=== PATIENT | female | born 1955 | race Caucasian/White ===

== ENCOUNTER 2019-04-20 14:58 | Outpatient (CLI) | payer BC, SELFPAY | END 2019-04-20 14:59 | disposition home or self-care (01) | LOC: ANHSURGERY 15:04 | PROVIDERS: PCP Internal Medicine; Visit Provider Obstetrics & Gynecology | DX: N83.209 Unspecified ovarian cyst, unspecified side (principal) | CPT/HCPCS: 36415; 86850; 86900; 86901 ==

== ENCOUNTER 2019-04-29 01:05 | Day surgery (SDC) | payer BC, SELFPAY ==
[2019-04-15 14:16] VITALS: BMI 16.6
[2019-04-29] VITALS (12 sets, daily range): BP systolic 102–153; BP diastolic 58–80; PULSE 59–76; RESP 12–18; TEMP 36.2–36.8; O2SAT 92–100; BMI 17.2
[2019-04-29] MEDS: LACTATED RINGERS 1,000 ML 30 ML IV CONT ×2 (11:00→13:25)
--- NOTE | 2019-04-29 11:34 | P.PNAN_ITS ---
Anes - Initial Pre Proc Eval Procedure: Operation Date: 04/29/19 12:00 Proposed Procedures p Robotic Assisted Laparoscopic Right Ovarian Cystectomy, Possible Right Oophorectomy - Karl Gomez MD Date/Time: 04/29/19 11:34 Surgeon: Karl Gomez MD Pre Op Diagnosis: Right Ovarian Cyst Patient Data Age: 63 Gender: F Height: 5 ft 3 in Weight: 44 kg Last Vital Signs Temp 98.3 F 04/29/19 10:38 Pulse 76 04/29/19 10:38 Resp 14 04/29/19 10:38 BP 153/80 H 04/29/19 10:38 Pulse Ox 100 04/29/19 10:38 Allergies Allergy/AdvReac Type Severity Reaction Status Date / Time cephalexin Allergy Intermediate increased Verified 04/29/19 10:30 heart rate codeine Allergy Intermediate Vomiting Verified 04/29/19 10:30 Penicillins Allergy Intermediate yeast Verified 04/29/19 10:30 infections tetracycline Allergy Intermediate increased Verified 04/29/19 10:30 heart rate Home Medications Medication Instructions Recorded Confirmed Type cyclosporine [Restasis] 1 drp OPHTHALMIC (EYE) BID 04/15/19 04/29/19 History Patient hx anesthesia problems: none Family hx anesthesia problems: none [facility] Past Medical History Medical History (Updated 04/29/19 @ 11:28 by Mehdi Bear MD) Arthritis Social History Social History Smoking status: Never smoker Alcohol intake: never Anes - Eval Final PreProcedure Day of Procedure 04/29/19 11:34 Patient weight: normal Heart: regular rate and rhythm Lungs: clear to auscultation Airway: Mallampati scale class III (due to arthritis has a problem with extension) Neurological: alert and oriented Last oral intake: >/= 8 hours ASA classification: II Emergent: no Anesthetic plan: proceed Anesthesia type and monitoring: general ETT and standard monitoring Informed Consent: The patient's anesthetic plan and its attendant risks and benefits were discussed with the patient/family/POA. Questions were solicited and answers provided to the satisfaction of the patient/family/POA.
--- NOTE | 2019-04-29 11:49 | PM.IMHP ---
H&P: HPI History of Present Illness Chief complaint: Right Ovarian Cyst Narrative: Maren Starkey is a 63 year old female admitted with right adnexal mass which has not changed in size/characteristics over past 3-4 months. 5cm with internal echoes, all tumor markers negative. Denies any sig bowel/bladder change and/or bleeding or pain. Has seen Dr Salinas for bladder issues, at this point no surgical intervention planned. Review of Systems Review of Systems: All systems reviewed & are unremarkable except as noted in HPI and below Cardiovascular: Cardiovascular: Reports no additional cardiovascular complaints Respiratory: Respiratory: Reports no additional respiratory complaints Gastrointestinal: Gastrointestinal: Reports no additional gastrointestinal complaints Genitourinary: Genitourinary: Reports no additional female genitourinary complaints [facility] Past Medical History Medical History (Updated 04/29/19 @ 11:54 by Karl Gomez MD) Arthritis History of hysteroscopy Pulmonary embolism Surgical History Surgical History (Updated 04/29/19 @ 11:54 by Karl Gomez MD) H/O tubal ligation Social History Social History Smoking status: Never smoker Alcohol intake: never Meds Home Medications and Allergies Home Medications Medication Instructions Recorded Confirmed Type cyclosporine [Restasis] 1 drp OPHTHALMIC (EYE) BID 04/15/19 04/29/19 History Allergies Allergy/AdvReac Type Severity Reaction Status Date / Time cephalexin Allergy Intermediate increased Verified 04/29/19 10:30 heart rate codeine Allergy Intermediate Vomiting Verified 04/29/19 10:30 Penicillins Allergy Intermediate yeast Verified 04/29/19 10:30 infections tetracycline Allergy Intermediate increased Verified 04/29/19 10:30 heart rate Vital Signs Vital Signs - 24 hr 04/29/19 10:38 Temperature 36.8 C Pulse Rate 76 Respiratory Rate 14 Blood Pressure 153/80 H Pulse Oximetry 100 Exam Chest: Chest palpation & inspection: normal inspection of the chest Resp: Effort & Inspection: normal respiratory effort and able to speak in complete sentences Auscultation: clear to auscultation bilaterally Cardio: Rate: regular rate Rhythm: regular rhythm GI: Inspection: normal to inspection Rectal Exam: deferred : External Female Exam: normal external appearance Speculum Exam - Vagina: normal appearance of the vagina Speculum Exam - Cervix: normal appearance of the cervix Bimanual exam- vagina & uterus: uterine size normal Bimanual Exam- Adnexa, other: Adnexal mass present on the right Assessment and Plan Additional Plan Right adnexal mass. Will proceed with laparoscopic evaluation and removal. Have discussed with the patient possibility of cystectomy but realistically most likely will proceed with oophorectomy. Any further plan will be based on findings at the time of the procedure.
--- NOTE | 2019-04-29 11:58 | WPDHPUPDATE1 ---
History and Physical Update Update Date/Time: 04/29/19 11:58 History and Physical has been reviewed, including an updated exam of the patient. There are NO changes in the patient's condition. Risks, benefits, and alternatives have been discussed and questions answered. Patient agrees to proceed with procedure.
--- NOTE | 2019-04-29 11:59 | P.HP_ITS ---
History of Present Illness History of Present Illness Consent: Risks, benefits, and alternatives have been discussed and questions answered. Patient agrees to proceed with procedure. Chief complaint: Right Ovarian Cyst Narrative: Maren Starkey is a 63 year old female [facility] Past Medical History Medical History (Updated 04/29/19 @ 11:54 by Karl Gomez MD) Arthritis History of hysteroscopy Pulmonary embolism Surgical History Surgical History (Updated 04/29/19 @ 11:54 by Karl Gomez MD) H/O tubal ligation Social History Social History Smoking status: Never smoker Alcohol intake: never Meds Home Medications and Allergies Home Medications Medication Instructions Recorded Confirmed Type cyclosporine [Restasis] 1 drp OPHTHALMIC (EYE) BID 04/15/19 04/29/19 History Allergies Allergy/AdvReac Type Severity Reaction Status Date / Time cephalexin Allergy Intermediate increased Verified 04/29/19 10:30 heart rate codeine Allergy Intermediate Vomiting Verified 04/29/19 10:30 Penicillins Allergy Intermediate yeast Verified 04/29/19 10:30 infections tetracycline Allergy Intermediate increased Verified 04/29/19 10:30 heart rate Vital Signs Vital Signs - 24 hr 04/29/19 10:38 Temperature 36.8 C Pulse Rate 76 Respiratory Rate 14 Blood Pressure 153/80 H Pulse Oximetry 100
--- NOTE | 2019-04-29 13:14 | P.OP_ITS ---
Procedure Note - Detailed Date of procedure: 04/29/19 Pre-op diagnosis: Right Ovarian Cyst Post-op diagnosis: same Procedure performed: Robotic assisted right salpingo-oophorectomy Description of procedure: Patient was prepped and draped in usual manner for this procedure. Abdominal trocar sites were marked and placed under direct visualization. Patient was placed in steep Trendelenburg and the trocars were attached to the DA Chava system. Instruments were placed under direct visualization. Surgeon moved to the console and the findings were noted as above. The infundibulopelvic ligament was cauterized and cut the utero-ovarian ligament was caught cauterized and cut. Further tissue was cauterized and cut to free the ovary from the pelvic sidewall. Specimen was thus placed in a Endo- Catch bag. Specimen was removed without difficulty. Gas was allowed to escape and trocars were removed. Subcuticular incisions were approximated using Osbaldo Monocryl. Patient was then sent to recovery in stable condition. Anesthesia: GETA Surgeon: Karl Gomez MD Estimated blood loss (mL): 0 Drains: No Packing: No Pathology: yes Complications: No immediate complications Condition: stable Disposition: PACU Findings: Uterus and left ovary and tube without abnormality. Right ovary with 4-5 cm clear fluid-filled cyst.
[2019-04-29] MEDS: KETOROLAC 30 MG/ML VIAL (*BKC) 15 MG IV PUSH (13:15)
[2019-04-29] MEDS: HYDROMORPHONE HCL 1 MG/ML INJ 0.5 MG IV PUSH ×2 (14:41→14:48)
--- NOTE | 2019-04-29 15:31 | SUR.PHASEII ---
1530- pt states she is very groggy. not sure if she wants pain pill. instructed to inform nurse if sh changes her mind.
== END 2019-04-29 16:42 | disposition home or self-care (01) ==
PROVIDERS: PCP Internal Medicine; Visit Provider Obstetrics & Gynecology
PROC: 8E0W4CZ Robotic Assisted Procedure of Trunk Region, Percutaneous Endoscopic Approach (ICD-10-PCS; CPT 49320; principal; 2019-04-29 12:00)
DX: N83.8 Other noninflammatory disorders of ovary, fallopian tube and broad ligament (principal)
CPT/HCPCS: 58661; 88305; A9270; J0131; J1170; J1885; J2250; J2405; J2704; J3010; J7030; J7120

== ENCOUNTER → 2019-05-19 12:25 | Outpatient (CLI) | payer BC, SELFPAY ==
--- NOTE | ~2019-05-19 | MR_ITS ---
EXAMINATION: MR cervical spine wo con DATE: 05/19/2019 13:13 INDICATION: Cervical radicular pain. TECHNIQUE: Magnetic resonance imaging (MRI) of the cervical spine was performed without intravenous c ontrast. Sequences included sagittal T2-weighted FSE, sagittal STIR FSE, sagittal T1-weighted FSE, ax ial MERGE, and axial T2-weighted FSE. COMPARISON: Cervical spine MRI 06/19/2005, radiographs 11/05/2017 FINDINGS: There is 4 degrees dextrocurvature of cervical spine. There is 2 mm retrolisthesis of C4 on C5, C5 on C6, and C6 on C7. There is severely decreased disc height at C4-C5, C5-C6, and C6-C7 with mild chronic height loss of the C4-C6 vertebral bodies. The spinal cord signal intensity is normal. T he following disc levels are specifically discussed: C2-C3: The disc does not extend beyond the endplate margin. There is mild left uncovertebral joint os teoarthritis. There is severe bilateral facet joint osteoarthritis. There is mild left neural foramin al stenosis. There is no central canal stenosis. C3-C4: The disc does not extend beyond the endplate margin. There is no uncovertebral joint osteoarth ritis. There is mild bilateral facet joint osteoarthritis. There is no neural foraminal stenosis. The re is no central canal stenosis. C4-C5: The disc is bulging. There is severe bilateral uncovertebral joint osteoarthritis. There is mi ld right and moderate left facet joint osteoarthritis. There is mild bilateral neural foraminal steno sis. There is mild central canal stenosis with ventral indentation of the spinal cord. C5-C6: The disc is bulging. There is severe bilateral uncovertebral joint osteoarthritis. There is mi ld bilateral facet joint osteoarthritis. There is mild bilateral neural foraminal stenosis. There is mild central canal stenosis. C6-C7: The disc is bulging. There is severe bilateral uncovertebral joint osteoarthritis. There is mi ld right and moderate left facet joint osteoarthritis. There is mild right and moderate left neural f oraminal stenosis. There is mild central canal stenosis. C7-T1: The disc does not extend beyond the endplate margin. There is no uncovertebral joint osteoarth ritis. There is mild right and moderate left facet joint osteoarthritis. There is no neural foraminal stenosis. There is no central canal stenosis. IMPRESSION: 1. Severe cervical spondylosis, worsened from 06/19/2005. Reviewed, dictated and finalized at location A.
== END ==
PROVIDERS: Visit Provider Pain Medicine Pain Medicine
DX: M47.22 Other spondylosis with radiculopathy, cervical region (principal)
CPT/HCPCS: 72141

== ENCOUNTER 2019-08-12 14:59 | Outpatient (CLI) | payer BC, SELFPAY ==
--- NOTE | ~2019-08-12 | DEXA_ITS ---
Bone Density Report Name: Maren Starkey Age: 63 Sex: Female Ethnicity: White Date of : 1955 Indication: postmenopausal osteoporosis; monitoring treatment; prior fracture; hysterectomy; Referring Provider: Sherita, Milady Calderon Study: Bone densitometry was performed. Exam Date: August 12, 2019 Accession number: [id number] Bone Density: Region BMD T-score Z-score Classification AP Spine (L1-L4) 0.843 -1.9 -0.2 Osteopenia Femoral Neck (Left) 0.514 -3.0 -1.6 Osteoporosis Total Hip (Left) 0.605 -2.8 -1.6 Osteoporosis Total Hip Bilateral Avg 0.605 -2.8 -1.7 Osteoporosis Femoral Neck (Right) 0.539 -2.8 -1.4 Osteoporosis Total Hip (Right) 0.604 -2.8 -1.7 Osteoporosis World Health Organization criteria for BMD impression classify patients as: Normal (T-score at or above -1.0), Osteopenia (T-score between -1.0 and -2.5), or Osteoporosis (T-score at or below -2.5). 10-year Fracture Risk: FRAX not reported because: Some T-score for Spine Total or Hip Total or Femoral Neck at or below -2.5 Treated for osteoporosis Previous Exams: Region Exam Age BMD T-score BMD Change BMD Change Date g/cm2 vs Baseline vs Previous AP Spine(L1-L4) 08/12/2019 63 0.843 -1.9 -0.107(-11.3%) -0.107(-11.3%) 04/06/2008 52 0.950 -0.9 Total Hip(Left) 08/12/2019 63 0.605 -2.8 -0.029(-4.6%)# -0.029(-4.6%)# 04/06/2008 52 0.635 -2.5 Total Hip(Right) 08/12/2019 63 0.604 -2.8 -0.045(-6.9%)# -0.045(-6.9%)# 04/06/2008 52 0.650 -2.4 *Denotes significance at 95% confidence level, LSC for AP Spine = 0.022 g/cm2, LSC for Total Hip = 0.027 g/cm2 Clinical Information Provided by Patient: Has had a low trauma fracture Is being treated for osteoporosis Has used the following medications: Fosamax (i.e. alendronate), Vitamin D, Calcium Has the following medical conditions: Hysterectomy Patient maximum height was 63 Menopause Age: 51 Onset of menses at age 14 Number of children 1 Impression: The patient has established osteoporosis, based on the Left Femoral Neck T-score and the existence of a prior fracture. The patient has risk factors, including: previous fracture. No significant bone loss was observed. Discussion: PATIENT UNDER TREATMENT WITH NO SIGNIFICANT BMD LOSS SINCE LAST EXAM. In an untreated patient, BMD typically declines with age. A lack of decline or gain is usually a sign that treatment is efficacious and fracture risk is reduced. It is important to ask patients whethe
--- NOTE | ~2019-08-12 | MM_ITS ---
EXAMINATION: MM screening [facility] BI w [facility] HISTORY: Screening mammogram TECHNIQUE: Craniocaudal and mediolateral oblique 3-D tomosynthesis images were obtained and synthetic 2-D images were generated. CAD analysis was submitted and interpreted. COMPARISON: 04/05/2010 bilateral digital screening mammogram BREAST PARENCHYMAL COMPOSITION: The breasts are extremely dense, which lowers the sensitivity of mamm ography. FINDINGS: There is no evidence of suspicious mass, calcification, or architectural distortion to sugg est malignancy in either breast. There has been no suspicious interval change. IMPRESSION: 1. No mammographic evidence of malignancy. 2. Recommend routine screening mammography in one year. BI-RADS Category 1: Negative Reviewed, dictated and finalized at location A.
== END 2019-08-12 15:00 | disposition home or self-care (01) ==
PROVIDERS: PCP Internal Medicine; Visit Provider Obstetrics & Gynecology
DX: M81.0 Age-related osteoporosis without current pathological fracture (principal); Z12.31 Encounter for screening mammogram for malignant neoplasm of breast; Z13.820 Encounter for screening for osteoporosis; M85.88 Other specified disorders of bone density and structure, other site
CPT/HCPCS: 77063; 77067; 77080

== ENCOUNTER 2019-10-27 07:15 | Outpatient (CLI) | payer BC, SELFPAY ==
[2019-10-27 23:24] LABS: SARS-CoV-2 RNA PCR Negative
== END 2019-10-27 07:16 | disposition home or self-care (01) ==
LOC: ANHCOVIDDT 07:15
PROVIDERS: Radiology Diagnostic Radiology; PCP Internal Medicine
DX: Z01.812 Encounter for preprocedural laboratory examination (principal); Z20.828 Contact with and (suspected) exposure to other viral communicable diseases
CPT/HCPCS: 87635; C9803; U0003

== ENCOUNTER 2019-10-30 09:38 | Outpatient (CLI) | payer BC, SELFPAY ==
[2019-10-26 09:23] VITALS: BMI 16.5
[2019-10-30] VITALS (9 sets, daily range): BP systolic 126–148; BP diastolic 71–90; PULSE 58–74; RESP 12–16; O2SAT 98–99
--- NOTE | ~2019-10-30 | XR_ITS ---
EXAMINATION: 1. XR myelogram spine lumbosacral 2. CT lumbar spine w con 3. CT cervical spine w con 4. XR myelogram spine cervical DATE: 10/30/2019 11:43 INDICATION: Cervical spondylosis. Lumbar spondylosis. TECHNIQUE: The procedure including the risks, benefits, and alternatives was discussed with the patie nt. Risks discussed included spinal headache, bleeding, and infection. The patient understood the ris ks and agreed to proceed. A timeout was performed to verify the patient's name, date of , and procedure to be performed. The skin overlying the L4-L5 level was prepped and draped in usual steri le fashion. Subcutaneous 1% lidocaine was used for local anesthesia. A 22 gauge spinal needle was a dvanced under fluoroscopic guidance. 10 mL Omnipaque 300 was injection into the thecal sac. The needl e was removed and the entry site was cleaned and dressed. There were no immediate complications. Cer vical and lumbar myelograms were performed. Fluoroscopy exposure time was 0.4 minutes. The total numb er of images was 11 for the lumbar myelogram and 5 for the cervical myelogram. CT of the cervical spi ne and lumbar spine was performed without intravenous contrast. Automated exposure control and iterat mary anne reconstruction technique were employed. The dose-length product was 150.64 mGy-cm for the lumbar spine and 98.23 mGy-cm for the cervical spine. COMPARISON: cervical spine MRI 05/19/19, lumbar spine MRI 09/19/17 FINDINGS: CERVICAL MYELOGRAM: Real-time fluoroscopy demonstrates the needle at the L4-L5 level. There is indent ation of the thecal sac at multiple levels in the cervical spine which will be further described on t he postmyelogram CT. POST-MYELOGRAM CERVICAL SPINE CT: There is kyphosis of cervical spine. There is 16 degrees dextroscol iosis of cervicothoracic spine. There is 2 mm anterolisthesis of C3 on C4. Vertebral body heights are normal. There is severely decreased disc height from C4-C5 through C6-C7. There is mild scarring at the lung apices. The following disc levels are specifically discussed: C2-C3: The disc does not extend beyond the endplate margins. There is mild left uncovertebral joint o steoarthritis. There is severe bilateral facet joint osteoarthritis. There is mild left neural forami nal stenosis. There is no central canal stenosis. C3-C4: The disc does not extend beyond the endplate margins. There is no uncovertebral joint osteoart hritis. There is mild bilateral facet joint osteoarthritis. There is no neural foraminal stenosis. Th ere is no central canal stenosis. C4-C5: The disc is bulging. There is severe bilateral uncovertebral joint osteoarthritis. There is mi ld right and moderate left facet joint osteoarthritis. There is mild bilateral neural foraminal steno sis. There is mild central canal stenosis with ventral indentation of the spinal cord. C5-C6: The disc is bulging. There is severe bilateral uncovertebral joint osteoarthritis. There is mi ld bilateral facet joint osteoarthritis. There is mild bilateral neural foraminal stenosis. There is mild central canal stenosis. C6-C7: The disc is bulging. There is severe bilateral uncovertebral joint osteoarthritis. There is mi ld right and moderate left facet joint osteoarthritis. There is mild right and moderate left neural f oraminal stenosis. There is mild central canal stenosis. C7-T1: The disc does not extend beyond the endplate margin. There is no uncovertebral joint osteoarth ritis. There is mild right and moderate left facet joint osteoarthritis. There is no neural foraminal stenosis. There is no central canal stenosis. LUMBAR MYELOGRAM: There is indentation of the thecal sac at multiple levels in the lumbar spine which will be further described on the post myelogram CT. POST-MYELOGRAM LUMBAR SPINE CT: There are multiple stones in each kidney measuring up to 4 mm on the l
[2019-10-30 10:19] LABS: Mean Platelet Volume 8.8 fl (7.4-10.4); Platelet Count Result 195 k/mm3 (150-375)
[2019-10-30 10:28] LABS: INR 0.9; Prothrombin Time 11.6 Seconds (11.1-14.7)
== END 2019-10-30 14:15 | disposition home or self-care (01) ==
PROVIDERS: Radiology Diagnostic Radiology; PCP Internal Medicine
DX: M48.02 Spinal stenosis, cervical region (principal); M47.812 Spondylosis without myelopathy or radiculopathy, cervical region; M47.896 Other spondylosis, lumbar region; M41.9 Scoliosis, unspecified
CPT/HCPCS: 36415; 62302; 62304; 62305; 72126; 72132; 85049; 85610

== ENCOUNTER 2019-11-02 13:01 | Outpatient (CLI) | payer BC, SELFPAY ==
[2019-11-02] VITALS (7 sets, daily range): BP systolic 131–153; BP diastolic 71–94; PULSE 75–95; RESP 16–19; TEMP 36.9; O2SAT 97–99
--- NOTE | ~2019-11-02 | XR_ITS ---
EXAMINATION: XR injection blood patch w img EXAM DATE: 11/02/2019 14:27 INDICATION: Spinal headache. Myelogram on 10/30/2019. TECHNIQUE: Procedure performed and completed on 11/02/2019 14:27. Informed consent was obtained from the patient for doing this procedure. I discussed benefits and risks including bleeding, infection, backache and headache. Alternatives also discussed. The DAP for this procedure was 2.4 Gycm2. Prior imaging was reviewed. A timeout procedure was performed. IV was placed under sterile conditions by access nurse Tiffanie. The back was prepped in standard sterile fashion with Betadine. L4-5 entry si te was chosen under fluoroscopic guidance and infiltrated with 1% lidocaine. Using the noncutting epi dural needle and loss of resistance technique, needle was advanced to the epidural space. At no time did CSF freely flow out of the needle. Tiffanie then withdrew 15 cc of blood out of the IV and handed this to me. I injected 10 mL of this into the epidural space. Patient tolerated the procedure well and was sent to postoperative for 2 hours ob servation prior to discharge. IMPRESSION: Status post fluoroscopic epidural blood patch. Reviewed, dictated and finalized at location A.
== END 2019-11-02 16:30 | disposition home or self-care (01) ==
PROVIDERS: Radiology Diagnostic Radiology; PCP Internal Medicine
DX: T81.89XA Other complications of procedures, not elsewhere classified, initial encounter (principal); R51 Headache
CPT/HCPCS: 62273; 77003

== ENCOUNTER 2020-02-09 02:07 | Outpatient (CLI) | payer BC, SELFPAY ==
[2020-02-09 19:16] LABS: SARS-CoV-2 RNA PCR Negative
== END 2020-02-09 02:08 | disposition home or self-care (01) ==
LOC: ANHCOVIDDT 02:07
PROVIDERS: PCP Internal Medicine; Visit Provider Internal Medicine Gastroenterology
DX: Z01.812 Encounter for preprocedural laboratory examination (principal); Z20.828 Contact with and (suspected) exposure to other viral communicable diseases
CPT/HCPCS: 87635; C9803; U0003

== ENCOUNTER 2020-02-12 01:18 | Day surgery (SDC) | payer BC, SELFPAY ==
[2020-02-05 09:02] VITALS: BMI 16.1
[2020-02-12 07:10] VITALS: BP 138/85; PULSE 92; RESP 20; TEMP 36.5; O2SAT 100; BMI 16.7
[2020-02-12] MEDS: LACTATED RINGERS 1,000 ML 150 ML IV CONT (07:26)
--- NOTE | 2020-02-12 07:42 | P.PNAN_ITS ---
Anes - Initial Pre Proc Eval Procedure: Operation Date: 02/12/20 08:30 Proposed Procedures p Esophagogastroduodenoscopy - Dmitry Lucero MD Date/Time: 02/12/20 07:42 Surgeon: Dmitry Lucero MD Pre Op Diagnosis: epigastric pain Patient Data Age: 64 Gender: F Height: 5 ft 3 in Weight: 42.7 kg Last Vital Signs Temp 97.7 F 02/12/20 07:10 Pulse 92 02/12/20 07:10 Resp 20 02/12/20 07:10 BP 138/85 02/12/20 07:10 Pulse Ox 100 02/12/20 07:10 Allergies Allergy/AdvReac Type Severity Reaction Status Date / Time cephalexin Allergy Intermediate increased Verified 02/12/20 07:19 heart rate codeine Allergy Intermediate Vomiting Verified 02/12/20 07:19 Penicillins Allergy Intermediate yeast Verified 02/12/20 07:19 infections tetracycline Allergy Intermediate increased Verified 02/12/20 07:19 heart rate Home Medications Medication Instructions Recorded Confirmed Type Restasis 1 drp OPHTHALMIC (EYE) BID 04/15/19 02/05/20 History Curcumin 1 cap PO TID 10/26/19 02/05/20 History [place] Bark 2 tablet PO BID 10/26/19 02/05/20 History calcium carbonate [Calcium 600] 600 mg PO BID 10/26/19 02/05/20 History magnesium 1 tablet PO DAILY 10/26/19 02/05/20 History multivitamin with iron-mineral 1 tablet PO DAILY 10/26/19 02/05/20 History omega [id number]-paq-[id number]-fish oil [Fish Oil] 1 cap PO TID 10/26/19 02/05/20 History Patient hx anesthesia problems: none Family hx anesthesia problems: none [facility] Past Medical History Medical History (Updated 04/29/19 @ 11:54 by Karl Gomez MD) Arthritis History of hysteroscopy Pulmonary embolism Surgical History Surgical History (Updated 04/29/19 @ 11:54 by Karl Gomez MD) H/O tubal ligation Social History Social History Smoking status: Never smoker Alcohol intake: current Drinks per week: 0 Alcohol use details: MAY HAVE A COUPLE DRINKS PER MONTH Substance use: never Substance use type: does not use Living arrangements: with family Spiritual care concerns: No Anes - Eval Final PreProcedure Day of Procedure 02/12/20 07:42 Patient weight: normal Heart: regular rate and rhythm Lungs: clear to auscultation Airway: Mallampati scale class II Neurological: alert and oriented Last oral intake: >/= 8 hours ASA classification: II Emergent: no Anesthetic plan: proceed Anesthesia type and monitoring: general GIVS and standard monitoring Informed Consent: The patient's anesthetic plan and its attendant risks and benefits were discussed with the patient/family/POA. Questions were solicited and answers provided to the satisfaction of the patient/family/POA.
--- NOTE | 2020-02-12 08:15 | WPDGICN ---
Assessment and Plan Assessment and plan (1) Early satiety: Code(s): R68.81 - Early satiety Status: Acute (2) Epigastric abdominal pain: Code(s): R10.13 - Epigastric pain Status: Acute Assessment and Plan: Plan is for EGD to evaluate her epigastric discomfort. Because of early satiety rule out gastric obstruction. If endoscopy not fruitful then gastric emptying scan may be of some additional benefit. GI Consult Note Consult date/time: 02/12/20 08:15 HPI: Maren Starkey is a 64 year old female Seen in evaluation at the request of Dr. Geo Pratt. Patient complains of early satiety. She states she feels full very quickly shortly after eating. The symptoms have been present for many years. She often will not be hungry for many days after eating. She reports a poor appetite. In the dietary options made no difference. She does have some tenderness noted in the epigastric area. Her family history is noncontributory. Previous colonoscopy in 2019 was unremarkable. Review of Systems Review of Systems: All systems reviewed & are unremarkable except as noted in HPI and below PMFSH Past Medical History Medical History (Updated 02/12/20 @ 08:16 by Dmitry Lucero MD) Arthritis History of hysteroscopy Pulmonary embolism Surgical History Surgical History (Updated 04/29/19 @ 11:54 by Karl Gomez MD) H/O tubal ligation Social History Social History Smoking status: Never smoker Alcohol intake: current Drinks per week: 0 Alcohol use details: MAY HAVE A COUPLE DRINKS PER MONTH Substance use: never Substance use type: does not use Living arrangements: with family Spiritual care concerns: No Meds Home Medications and Allergies Home Medications Medication Instructions Recorded Confirmed Type Restasis 1 drp OPHTHALMIC (EYE) BID 04/15/19 02/05/20 History Curcumin 1 cap PO TID 10/26/19 02/05/20 History [place] Bark 2 tablet PO BID 10/26/19 02/05/20 History calcium carbonate [Calcium 600] 600 mg PO BID 10/26/19 02/05/20 History magnesium 1 tablet PO DAILY 10/26/19 02/05/20 History multivitamin with iron-mineral 1 tablet PO DAILY 10/26/19 02/05/20 History omega 9-rfy-wug-fish oil [Fish Oil] 1 cap PO TID 10/26/19 02/05/20 History Allergies Allergy/AdvReac Type Severity Reaction Status Date / Time cephalexin Allergy Intermediate increased Verified 02/12/20 07:19 heart rate codeine Allergy Intermediate Vomiting Verified 02/12/20 07:19 Penicillins Allergy Intermediate yeast Verified 02/12/20 07:19 infections tetracycline Allergy Intermediate increased Verified 02/12/20 07:19 heart rate Vital Signs Vital Signs - 24 hr 02/12/20 07:10 Temperature 97.7 F Pulse Rate 92 Respiratory Rate 20 Blood Pressure 138/85 Pulse Oximetry 100 Exam Narrative: Exam Narrative: Physical exam reveals patient to be alert. Vital signs stable. HEENT exam unremarkable. Lungs are clear to auscultation and percussion. Heart is without murmur or extra sounds. Bowel sounds are present nontender no organomegaly. No splash or other abnormalities identified. Digital rectal exam normal.
[2020-02-12 08:40] VITALS: BP 125/85; PULSE 78; RESP 30; O2SAT 99
[2020-02-12 08:50] VITALS: BP 122/80; PULSE 73; RESP 20; O2SAT 99
[2020-02-12 09:00] VITALS: BP 130/88; PULSE 67; RESP 20; O2SAT 100
== END 2020-02-12 09:11 | disposition home or self-care (01) ==
PROVIDERS: PCP Internal Medicine; Visit Provider Internal Medicine Gastroenterology
PROC: 0DJ08ZZ Inspection of Upper Intestinal Tract, Via Natural or Artificial Opening Endoscopic (ICD-10-PCS; CPT 43235; principal; 2020-02-12 08:30)
DX: Q39.4 Esophageal web (principal); K21.00 Gastro-esophageal reflux disease with esophagitis, without bleeding; Z86.711 Personal history of pulmonary embolism
CPT/HCPCS: 43450; 43235; J2001; J2704; J7120

== ENCOUNTER 2020-11-30 16:30 | Outpatient (CLI) | payer MEDICARE, SELFPAY ==
--- NOTE | ~2020-11-30 | MM_ITS ---
EXAMINATION: MM screening [facility] HISTORY: Screening mammogram TECHNIQUE: Craniocaudal and mediolateral oblique 3-D tomosynthesis images were obtained and synthetic 2-D images were generated. Bilateral rotated lateral cc views. CAD analysis was submitted and interp reted. COMPARISON: 08/12/2019, 04/05/2010 bilateral digital screening mammogram examinations BREAST PARENCHYMAL COMPOSITION: The breasts are extremely dense, which lowers the sensitivity of mamm ography. FINDINGS: Occasional benign calcifications. There is no evidence of suspicious mass, calcification, o r architectural distortion to suggest malignancy in either breast. There has been no suspicious inter libia change. IMPRESSION: 1. No mammographic evidence of malignancy. 2. Recommend routine screening mammography in one year. BI-RADS Category 2: Benign finding(s). Reviewed, dictated and finalized at location A.
== END 2020-11-30 16:31 | disposition home or self-care (01) ==
LOC: ANHIMG 16:34
PROVIDERS: PCP Internal Medicine; Visit Provider Obstetrics & Gynecology
DX: Z12.31 Encounter for screening mammogram for malignant neoplasm of breast (principal)
CPT/HCPCS: 77063; 77067

== ENCOUNTER 2021-12-04 14:31 | Outpatient (CLI) | payer MEDICARE, SELFPAY ==
--- NOTE | ~2021-12-04 | MM_ITS ---
EXAMINATION: MM screening [facility] HISTORY: Screening mammogram TECHNIQUE: Craniocaudal and mediolateral oblique 3-D tomosynthesis images were obtained and synthetic 2-D images were generated. CAD analysis was submitted and interpreted. COMPARISON: 11/30/2020, screening mammogram examinations BREAST PARENCHYMAL COMPOSITION: The breasts are extremely dense, which lowers the sensitivity of mamm ography. FINDINGS: Occasional benign calcifications are again noted. There is no evidence of suspicious mass, calcification, or architectural distortion to suggest malignancy in either breast. There has been no suspicious interval change. IMPRESSION: 1. No mammographic evidence of malignancy. 2. Recommend routine screening mammography in one year. 2 Reviewed, dictated and finalized at location A.
== END 2021-12-04 14:32 | disposition home or self-care (01) ==
LOC: ANHIMG 14:34
PROVIDERS: PCP Internal Medicine; Visit Provider Obstetrics & Gynecology
DX: Z12.31 Encounter for screening mammogram for malignant neoplasm of breast (principal)
CPT/HCPCS: 77063; 77067

== ENCOUNTER → 2022-03-26 15:06 | Outpatient (CLI) | payer MEDICARE, SELFPAY ==
--- NOTE | ~2022-03-26 | MR_ITS ---
MRI of the left foot CLINICAL HISTORY: Tendon rupture TECHNIQUE: Sagittal T1-weighted and STIR images, axial proton-density and proton-density fat-sat imag es, and coronal T1 weighted and proton-density fat-sat images were acquired through the midfoot and f orefoot. FINDINGS: There is a transverse fracture through the midportion of the distal phalanx of the great to e, essentially nondisplaced. Remaining osseous structures are intact. No other bone marrow signal abn ormality identified. Joint spaces are preserved. No joint effusion identified. Visualized flexor and extensor tendons are intact. Visualized musculature of the foot is unremarkable . Visualized plantar fascia intact. No intermetatarsal bursitis or Callahan's neuroma evident. IMPRESSION: Transverse, nearly nondisplaced fracture of the midportion of the distal phalanx of the great toe. Reviewed, dictated and finalized at [facility]. HT CALLER IMPRESSION: Transverse, nearly nondisplaced fracture of the midportion of the distal phalan x of the great toe.
== END ==
PROVIDERS: PCP Internal Medicine; Visit Provider Podiatrist Foot & Ankle Surgery
DX: M66.88 Spontaneous rupture of other tendons, other sites (principal); S92.425A Nondisplaced fracture of distal phalanx of left great toe, initial encounter for closed fracture; T14.90XA Injury, unspecified, initial encounter
CPT/HCPCS: 73718

== ENCOUNTER 2022-04-30 00:03 | Day surgery (SDC) | payer MEDICARE, SELFPAY ==
[2022-04-24 14:04] VITALS: BMI 16.1
--- NOTE | 2022-04-24 14:17 | PC.NURSE ---
Report to the Outpatient Waiting Room, entrance under the green pavilion located off [facility], at time ___0630____ on date _04/30/22 . Planned Procedure Time: _0830 . Time changes happen often and if your time is changed the preop area will call you the afternoon before. - You and your visitor will be asked to self-screen and do not enter if you have any COVID symptoms. - Only one visitor is requested with a max of two and NO children visitors are allowed at this time. - The patient visitor may be requested to leave or wait in car when not with patient due to distancing restrictions. - A mask is optional within the hospital at this time. Patients may have clear liquids (water, carbonated beverages, clear teas, apple juice) until 3 hours prior to surgery with a maximum of 20 ounces. - No food from midnight until time of surgery - Infants may have breast milk until 4 hours before surgery, infant formula 6 hours prior to surgery. - Children will be allowed to drink immediately following surgery. If applicable, please bring a bottle or sippy cup to assist with drinking. Juice, water, soda, and popsicles are readily available. For infants on formula, please bring formula the day of surgery. Pacifiers are allowed. Take the following medications with a SIP of water the morning of surgery: _RESTASIS EYE DROPS__ DO NOT STOP ANY OF YOUR OTHER PRESCRIPTION MEDICATIONS PRIOR TO SURGERY ?EXCEPT THE FOLLOWING Medications to discontinue per ANESTHESIA - _MULTIVITAMIN & SUPPLEMENTS 3 DAYS PRIOR TO SURGERY_ Date to take last dose____04/26/22 Please no make-up, nail samoan, hairspray, perfume, deodorant, or body powder the day of surgery. No jewelry (including any body piercings) or valuables the day of surgery, leave them at home. Please take a shower or bath the night before, or the morning of, surgery with an antibacterial soap. Wear comfortable, loose fitting clothing. Children are encouraged to wear pajamas. - Jewelry must be removed prior to entering the operating room. Rings and piercings that are not removed may be cut off. - The hospital will not accept responsibility for valuables. - Please leave all valuables, including medications, at home the day of surgery. If you are going home after surgery, a licensed gas truck driver must drive you home. - NO public transportation without another adult if you receive anesthesia. - We recommend that an adult stay with you for 24 hours following discharge. - We also recommend that you do not drive, make important decision, drink alcoholic beverages, or take any drugs that were not prescribed by your health care provider for at least 24 hours after your discharge time. For Pediatric surgeries, we recommend two adults accompany the child home. Follow any additional instructions given to you from your surgeon. If you or anyone in your household have experienced Covid symptoms in the past week, please notify your surgeon or the nurse liaison at the phone number below for possible testing. Telephone instructions given to _PATIENT_and asked if any additional questions and then verbalized understanding. Patient advised to call surgeon office or pre surgery nurse liaison [phone] if any additional questions.
[2022-04-30] VITALS (7 sets, daily range): BP systolic 88–166; BP diastolic 52–91; PULSE 15–75; RESP 14–16; TEMP 36.6; O2SAT 99–100
--- NOTE | ~2022-04-30 | XR_ITS ---
EXAMINATION: XR surgery orthopedic DATE: 04/30/2022 08:08 INDICATION: ORIF left hallux fracture TECHNIQUE: 3 fluoroscopic images of the left great toe were obtained during procedure performed by Dr Steve Bishop. Radiologist was not present for the imaging or procedure. The amount of fluoroscopy time u sed during this procedure was 0.2 minutes. COMPARISON: None. FINDINGS: Interval distal tip approximately oriented compression screw fixation of the previous noted nondispla ulices transverse extra articular fracture of the proximal metaphysis of the left first proximal phalanx . Alignment remains essentially anatomic. No other fractures identified. Mild osteoarthritis at the f irst metatarsophalangeal and multiple interphalangeal joints in the remaining toes. IMPRESSION: 1. Essentially anatomic alignment post internal fixation of an extra articular fracture of the left f irst proximal phalanx. Reviewed, dictated and finalized at location A. ER BENCH IMPRESSION: 1. Essentially anatomic alignment post internal fixation of an extra articular fracture of the left first proximal phalanx.
[2022-04-30] MEDS: ACETAMINOPHEN 500 MG TABLET 1000 MG PO (06:30)
[2022-04-30] MEDS: LACTATED RINGERS 1,000 ML 30 ML IV CONT (06:48)
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
--- NOTE | 2022-04-30 07:08 | WPDHPUPDATE1 ---
History and Physical Update Update Date/Time: 04/30/22 07:08 History and Physical has been reviewed, including an updated exam of the patient. There are NO changes in the patient's condition. Risks, benefits, and alternatives have been discussed and questions answered. Patient agrees to proceed with procedure.
[2022-04-30] MEDS: KETOROLAC 15 MG/ML VIAL (*BKC) IV PUSH (07:18)
[2022-04-30] MEDS: CLINDAMYCIN 900 MG/D5W 50 ML 900 MG/50 ML PIGGYBACK 50 MG IVPB (07:27)
[2022-04-30] MEDS: BUPivacaine HCL 0.5% PF 30 ML VIAL INFILTRATE (07:52)
--- NOTE | 2022-04-30 08:08 | W.PM.PROC2 ---
Procedure Note - Detailed Date of Procedure 04/30/22 Pre-op Diagnosis left hallux fx Post-op Diagnosis Same Procedure Performed Open reduction internal fixation left hallux fracture Surgeon Juice Bishop MD Senior Business Intelligence Analyst 1st assistant to the director Anesthesia MAC Indications 66-year-old woman with osteoporosis and left hallux distal phalanx fracture. Nonhealing per radiographs and exam. Patient presents for operative treatment. Description of Procedure Patient identified in the preoperative holding. Informed consent given. Operative extremity marked. Patient received intravenous antibiotics. Patient brought to the operating room where underwent Intravenous sedation anesthetic by anesthesia team. Positioned supine on operating room table. Time-out performed confirming the patient, site of the surgery and the plan. left foot prepped draped usual sterile surgical fashion using a ChloraPrep skin solution. Local anesthetic with 0.5% Marcaine plain for the toe. Incision made with a 15 blade knife of the distal aspect of the toe. Dissection carried down to the distal phalanx. Reduction performed and verified with image intensification. Fixation achieved with a 2.5 mm cannulated headless screw. Good fixation noted. Alignment and positioning of hardware checked with image intensification and noted to be good. Wound irrigated and skin closed with 4-0 nylon interrupted suture. Sterile dressing applied. The patient was then woken from anesthesia, extubated and taken to the recovery room in stable condition. All sponge, needle, instrument counts were correct at the end of the case. Implants 2.5 mm cannulated screw- arthrex Estimated Blood Loss 2 Tourniquet Time 0 Drains No Packing No Pathology None sent Complications None Condition Stable Disposition PACU [facility] Billing Surgery - Charge Forward: Surgery Billing ([id number])
== END 2022-04-30 10:15 | disposition home or self-care (01) ==
PROVIDERS: PCP Internal Medicine; Visit Provider Orthopaedic Surgery
PROC: (CPT 28485; principal; 2022-04-30 07:30)
DX: M80.072 Age-related osteoporosis with current pathological fracture, left ankle and foot (principal)
CPT/HCPCS: 28505; 99199; A9270; J1885; J2370; J2405; J2704; J3010; J7120

== ENCOUNTER 2022-05-28 15:47 | Outpatient (CLI) | payer MEDICARE, SELFPAY ==
--- NOTE | ~2022-05-28 | MR_ITS ---
EXAMINATION: MR pituitary wo/w con DATE: 05/28/2022 17:02 INDICATION: Abnormal result of other endocrine function studies TECHNIQUE: Magnetic resonance imaging (MRI) of the brain and brainstem was performed without and with 8 mL Multihance intravenous contrast. Whole-brain sequences included sagittal T1-weighted FSE, axial diffusion-weighted FS EPI, axial 3-D SWAN, axial T2-weighted FLAIR Propeller, and axial T2-weighted Propeller. Small [id number]-lh-pfvc sequences included sagittal and coronal T1-weighted FSE centered at th e pituitary. Postcontrast sequences included small tcdff-rs-ainy coronal T1-weighted FSE in a time c ourse and sagittal T1-weighted FSE and whole-brain axial T1-weighted FSE. Apparent diffusion coeffici ent (ADC) maps were created. COMPARISON: None. FINDINGS: There are no areas of restricted diffusion to suggest acute infarction. There is a 3-4 mm hypoenhanc ing nodule at the right side of the pituitary with likely secondary minimal leftward deviation of the pituitary stalk. The pituitary gland is normal size with no cephalad extension out of the pituitary fossa. No other abnormally enhancing lesions identified. No intracranial hemorrhage or other abnormal intracranial mass lesion. Single tiny focus of susceptibility artifact along a gyrus at the left par ietal lobe likely sequela of prior microhemorrhage. There are no intraparenchymal signal abnormalitie s seen on the other pulse sequences. The ventricles are symmetric and normal in size. There are no ab normal extra-axial fluid collections. Flow voids are seen in the cerebral arteries on the T2-weighted sequences consistent with their expected patency. Left vertebral artery is dominant. Visualized orbi ts and soft tissues are unremarkable. IMPRESSION: 1. 3-4 mm hypoenhancing likely pituitary microadenoma at the right side of the otherwise normal pitui tary gland. Reviewed, dictated and finalized at location A. IMPRESSION: 1. 3-4 mm hypoenhancing likely pituitary microadenoma at the right side of the otherwise normal pituitary gland.
== END 2022-05-28 15:48 | disposition home or self-care (01) ==
PROVIDERS: PCP Internal Medicine; Visit Provider Internal Medicine Endocrinology, Diabetes & Metabolism
DX: R94.7 Abnormal results of other endocrine function studies (principal); D36.7 Benign neoplasm of other specified sites
CPT/HCPCS: 70553; A9577

== ENCOUNTER 2022-07-26 10:51 | Outpatient (NON) | payer MEDICARE, SELFPAY | END 2022-07-26 10:52 | disposition home or self-care (01) | LOC: ANHLAB 07-27 10:53 | PROVIDERS: PCP Internal Medicine; Visit Provider Nurse Practitioner | DX: D49.2 Neoplasm of unspecified behavior of bone, soft tissue, and skin (principal) | CPT/HCPCS: 88305 ==

== ENCOUNTER 2023-01-01 15:16 | Outpatient (CLI) | payer MEDICARE, SELFPAY ==
--- NOTE | ~2023-01-01 | MM_ITS ---
EXAMINATION: MM screening [facility] BI [facility] HISTORY: Screening mammogram TECHNIQUE: Craniocaudal and mediolateral oblique 3-D tomosynthesis images were obtained and synthetic 2-D images were generated. CAD analysis was submitted and interpreted. COMPARISON: 12/04/2021, 11/30/2020, 08/12/2019 bilateral screening mammogram examinations BREAST PARENCHYMAL COMPOSITION: The breasts are extremely dense, which lowers the sensitivity of mamm ography. FINDINGS: There is no evidence of suspicious mass, calcification, or architectural distortion to sugg est malignancy in either breast. There has been no suspicious interval change. IMPRESSION: 1. No mammographic evidence of malignancy. 2. Recommend routine screening mammography in one year. BI-RADS Category 1: Negative Reviewed, dictated and finalized at location A.
== END 2023-01-01 15:17 | disposition home or self-care (01) ==
PROVIDERS: PCP Internal Medicine; Visit Provider Obstetrics & Gynecology
DX: Z12.31 Encounter for screening mammogram for malignant neoplasm of breast (principal)
CPT/HCPCS: 77063; 77067

== ENCOUNTER 2023-02-05 04:27 | Emergency (ER) | payer MEDICARE, SELFPAY ==
--- NOTE | ~2023-02-05 | XR_ITS ---
Clinical Indication: Chest pain PA and lateral views of the chest: Comparison: 10/25/2017 Findings: The lungs are clear, without evidence of focal consolidation or pleural effusion. Cardiome diastinal silhouette is within normal limits. Bones and soft tissues are unremarkable. Impression: Normal chest. Reviewed, dictated and finalized at location . ERCIAL LOAN OFFICER Impression: Normal chest.
--- NOTE | 2023-02-05 04:28 | ECG_ITS ---
Measurements Intervals [place] Rate: 77 P: 71 WI: 130 QRS: 58 QRSD: 85 T: 44 QT: 359 QTc: 408 Interpretive Statements SINUS RHYTHM POSSIBLE LEFT ATRIAL ENLARGEMENT BORDERLINE ST ABNORMALITY- ANTEROLAT/INF LEADS BASELINE ARTIFACT- V4 BORDERLINE ECG NO PREVIOUS ECG AVAILABLE FOR COMPARISON Electronically Signed On 02-05-2023 6:50:13 AUTOMOTIVE CONSULTANT by Jeff Zhang D.O.
[2023-02-05 04:45] VITALS: BP 158/90; PULSE 73; RESP 17; TEMP 36.6; O2SAT 100
[2023-02-05 04:50] LABS: Basophils Percent Auto 0.6 % (0.2-1.2); Eosinophils Absolute Auto 0.1 K/mm3 (0-0.3); Eosinophils Percent Auto 1.6 % (0-4.4); Hematocrit 45.3 % (37.0-47.0); Hemoglobin 14.2 g/dL (12.0-15.0); Immature Granulocyte Absolute 0.02 K/mm3 (0.00-0.031); Immature Granulocyte Percent A 0.3 % (0-0.5); Lymphocytes Absolute Auto 1.75 K/mm3 (0.9-3.2); Lymphocytes Percent Auto 26.1 % (18.3-44.2); Mean Corpuscular HGB Conc 31.3 g/dl (32-36); Mean Corpuscular Volume 95.8 fl (80-100); Monocytes Absolute Auto 0.8 K/mm3 (0.1-0.6); Monocytes Percent Auto 11.6 % (2.6-8.5); Neutrophils Percent Auto 59.8 % (45.5-73.1); Platelet Count Result 205 k/mm3 (150-375); Red Blood Count 4.73 M/mm3 (4.2-5.4); Red Cell Distribution Width 13.4 % (11.5-14.5); White Blood Count 6.7 K/mm3 (4.5-10.0)
[2023-02-05] MEDS: ASPIRIN 81 MG CHEWABLE TABLET 324 MG PO (04:53)
[2023-02-05 05:00] LABS: Alanine Aminotransferase 18 U/L (6-35); Albumin Level 4.9 g/dL (3.5-5.1); Alkaline Phosphatase 40 U/L (38-126); Anion Gap 10 mmol/L (8-16); Aspartate Amino Transferase 35 U/L (14-36); Bilirubin,Total 0.6 mg/dL (0.2-1.3); Blood Urea Nitrogen 17 mg/dL (7-17); Calcium 9.2 mg/dL (8.4-10.2); Carbon Dioxide 27 mmol/L (22-30); Chloride 101 mmol/L (98-107); Estimated CRCL calculation 40 ml/min; Estimated Glomerular Filt Rate > 60; Glucose 109 mg/dL (65-110); INR 0.9; Lipase 267 U/L (23-300); Partial Thromboplastin Time 24.2 SECONDS (22.3-36.8); Potassium 3.7 mmol/L (3.4-5.0); Prothrombin Time 12.3 Seconds (11.1-14.7); Sodium 138 mmol/L (137-145)
[2023-02-05 05:12] LABS: Troponin I < 0.012 ng/mL (0.000-0.034)
[2023-02-05 06:06] VITALS: BP 141/88; PULSE 70; RESP 15; O2SAT 100
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
[2023-02-05 07:51] LABS: Magnesium 2.4 mg/dL (1.6-2.3)
[2023-02-05 08:02] LABS: Troponin I < 0.012 ng/mL (0.000-0.034)
[2023-02-05 08:28] VITALS: BP 167/97; PULSE 78; RESP 16; O2SAT 97
== END 2023-02-05 08:30 | disposition home or self-care (01) ==
PROVIDERS: Emergency Medicine; Emergency Provider Emergency Medicine; PCP Internal Medicine
DX: R00.2 Palpitations (principal); R07.9 Chest pain, unspecified; M19.90 Unspecified osteoarthritis, unspecified site
CPT/HCPCS: 36415; 71046; 80053; 83690; 83735; 84443; 84484; 85025; 85610; 85730; 93005; 99284; A9270

== ENCOUNTER 2023-04-15 00:14 | Day surgery (SDC) | payer MEDICARE, SELFPAY ==
[2023-04-08 11:41] VITALS: BMI 16.5
--- NOTE | 2023-04-12 09:26 | SUR.PREOP ---
Patient called regarding upcoming procedure. Reviewed preop instructions, appointment times, and procedure prep.
[2023-04-15 11:52] VITALS: BP 139/89; PULSE 99; RESP 16; TEMP 36.4; O2SAT 100; BMI 15.5
[2023-04-15] MEDS: LACTATED RINGERS 1,000 ML 150 ML IV CONT (12:18)
--- NOTE | 2023-04-15 12:18 | WPDHPUPDATE1 ---
History and Physical Update Update Date/Time: 04/15/23 12:18 History and Physical has been reviewed, including an updated exam of the patient. There are NO changes in the patient's condition. Risks, benefits, and alternatives have been discussed and questions answered. Patient agrees to proceed with procedure.
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
[2023-04-15 12:34] VITALS: BP 130/80; PULSE 89; RESP 18; O2SAT 99
[2023-04-15 12:44] VITALS: BP 123/81; PULSE 73; RESP 21; O2SAT 98
[2023-04-15 12:54] VITALS: BP 124/79; PULSE 74; RESP 25; O2SAT 100
== END 2023-04-15 13:20 | disposition home or self-care (01) ==
PROVIDERS: PCP Internal Medicine; Visit Provider Internal Medicine Gastroenterology
PROC: 0DJ08ZZ Inspection of Upper Intestinal Tract, Via Natural or Artificial Opening Endoscopic (ICD-10-PCS; CPT 43235; principal; 2023-04-15 13:00)
DX: K21.9 Gastro-esophageal reflux disease without esophagitis (principal); M81.0 Age-related osteoporosis without current pathological fracture; Z98.890 Other specified postprocedural states; Z86.018 Personal history of other benign neoplasm; Z86.711 Personal history of pulmonary embolism; Z82.49 Family history of ischemic heart disease and other diseases of the circulatory system
CPT/HCPCS: 43239; 43250; 88305; J2704; J7120

== ENCOUNTER 2023-06-18 13:51 | Outpatient (CLI) | payer MEDICARE, SELFPAY ==
--- NOTE | ~2023-06-18 | MR_ITS ---
EXAMINATION: MR brain/brain stem wo/w con DATE: 06/18/2023 15:47 INDICATION: Brain tumor. TECHNIQUE: Magnetic resonance imaging (MRI) of the brain and brainstem was performed without and with 8 mL MultiHance intravenous contrast. COMPARISON: Brain MRI 05/28/2022 FINDINGS: The pituitary is normal in size with height of 6 mm. There is a 3 mm hypoenhancing versus n onenhancing mass in the pituitary. There is no intracranial hemorrhage or acute infarction. There are scattered areas of nonspecific increased T2-weighted signal intensity in the cerebral white matter, which is within normal limits for the patient's age. The ventricles are normal in size. The paranasal sinuses are clear. The orbits are normal. The mastoid air cells are normal. IMPRESSION: 1. 3 mm mass in the pituitary, which may be a microadenoma or a cyst. Reviewed, dictated and finalized at location E.
== END 2023-06-18 13:52 | disposition home or self-care (01) ==
PROVIDERS: PCP Internal Medicine; Visit Provider Internal Medicine Endocrinology, Diabetes & Metabolism
DX: D35.2 Benign neoplasm of pituitary gland (principal)
CPT/HCPCS: 70553; A9577

== ENCOUNTER 2023-10-03 14:55 | Outpatient (CLI) | payer MEDICARE, SELFPAY ==
--- NOTE | ~2023-10-03 | XR_ITS ---
XR lumbar spine 6V w bending DATE: 10/03/2023 15:13 INDICATION: Low back pain TECHNIQUE: AP, lateral, bilateral oblique views, cone-down lateral lumbosacral view. Flexion and exte nsion lateral views. COMPARISON: None FINDINGS: There is 26 degrees rotatory levoscoliosis of the lumbar spine measured from L1 to L4. Included lower thoracic and lumbar pedicles are intact. No lumbar spine fracture or bone destruction, spondylolysis or spondylolisthesis is evident. There is mild degenerative disc disease at L1-2 and L2-3. No instability is noted on flexion and extension. The sacroiliac joints are intact. IMPRESSION: 26 degrees rotatory levoscoliosis measured from L1 to L4 Mild degenerative disc disease at L1-2 and L2-3 Reviewed, dictated and finalized at location J.
== END 2023-10-03 14:56 | disposition home or self-care (01) ==
LOC: ANHIMG 14:56
PROVIDERS: PCP Internal Medicine; Visit Provider Obstetrics & Gynecology
DX: M41.86 Other forms of scoliosis, lumbar region (principal); M51.36 Other intervertebral disc degeneration, lumbar region
CPT/HCPCS: 72114

== ENCOUNTER 2024-01-28 15:10 | Outpatient (CLI) | payer MEDICARE, SELFPAY ==
--- NOTE | ~2024-01-28 | MM_ITS ---
EXAMINATION: MM screening [facility] w [facility] HISTORY: Screening TECHNIQUE: Craniocaudal and mediolateral oblique 3-D tomosynthesis images were obtained and synthetic 2-D images were generated. CAD analysis was submitted and interpreted. COMPARISON: Examination was compared with multiple prior studies performed most recently on 3 and the back to 11/30/2020 BREAST PARENCHYMAL COMPOSITION: The breasts are extremely dense, which lowers the sensitivity of mamm ography. FINDINGS: Punctate calcifications are redemonstrated within the retroareolar position of the right br east, unchanged dating back to 11/30/2020 Stable parenchymal pattern without suspicious microcalcifications, architectural distortion, discrete masses or significant asymmetry. IMPRESSION: 1. No mammographic or tomographic evidence to suggest the presence of malignancy. 2. Follow-up as per ACR/ACS guidelines is recommended. Reviewed, dictated and finalized at location A. E [employer] ANALYST IMPRESSION: 1. No mammographic or tomographic evidence to suggest the presence of malignanc y. 2. Follow-up as per ACR/ACS guidelines is recommended.
== END 2024-01-28 15:11 | disposition home or self-care (01) ==
LOC: ANHIMG 15:11
PROVIDERS: PCP Internal Medicine; Visit Provider Obstetrics & Gynecology
DX: Z12.31 Encounter for screening mammogram for malignant neoplasm of breast (principal)
CPT/HCPCS: 77063; 77067